=== PATIENT | female | born 1945 | race Caucasian/White ===

== ENCOUNTER 2017-01-28 02:12 | Emergency (ER) | payer MEDICARE, OTHER ==
[~2017-01-28] VITALS: Ht 149.9 cm; Wt 52.0 kg
[~2017-01-28 02:12] MED LIST: ALBU8.5H8 IH; CARV6 PO; COLC0.6T67 PO; HYOS-27 SL; INSLAN SQ; NIFE30TA66 PO; NITR0.4T SL; PANT40TA25 PO; SERT50TA12 PO; SUCR1ORA5 PO
[2017-01-28] MEDS ORDERED: AMLO-511 PO (02:26)
[2017-01-28] MEDS ORDERED: CARV12 PO (02:26)
[2017-01-28] MEDS ORDERED: ATOR40TA28 PO (02:26)
[2017-01-28] MEDS ORDERED: RANO500T3 PO ×2 (02:26→14:29)
[2017-01-28] MEDS ORDERED: ESCI10TA PO (02:26)
[2017-01-28] MEDS ORDERED: HYDR-2924 PO (02:26)
[2017-01-28] MEDS ORDERED: INSNOV SQ (02:26)
[2017-01-28] MEDS ORDERED: ISOS60TA4 PO (02:26)
[2017-01-28] MEDS ORDERED: LEVE500T53 PO ×2 (02:26)
[2017-01-28] MEDS ORDERED: HYDR-309 PO (02:26)
[2017-01-28] MEDS ORDERED: ESOM20CA39 PO (02:26)
[2017-01-28] MEDS ORDERED: SEVEC800 PO (02:26)
[2017-01-28] MEDS ORDERED: QUET25TA PO (02:26)
[2017-01-28] MEDS ORDERED: INSLAN SQ (02:26)
[2017-01-28 02:33] LABS: GLUCOSE,POINT OF CARE 177 MG/DL (70-110)
[2017-01-28] MEDS ORDERED: VALA500T38 PO (02:40)
[2017-01-28 03:11] LABS: BASOPHILS % (AUTO) 0.6 % (0.0-2.0); HEMATOCRIT 33.5 % (36-46); HEMOGLOBIN 11.2 g/dL (12.0-16.0); LYMPHOCYTES # (AUTO) 1.8 K/uL (1.0-4.8); LYMPHOCYTES % (AUTO) 39.2 % (22.0-44.0); MEAN CORPUSCULAR HEMOGLOBIN 30.4 pg (26.0-34.0); MEAN CORPUSCULAR HGB CONC 33.5 G/dL (31.0-37.0); MEAN CORPUSCULAR VOLUME 91 fL (80-100); MONOCYTES # (AUTO) 0.2 K/uL (0.1-1.0); NEUTROPHILS # (AUTO) 2.5 K/uL (1.8-7.7); NEUTROPHILS % (AUTO) 53.2 % (40.0-70.0); PLATELET COUNT (AUTO) 148 K/uL (150-450); WHITE BLOOD COUNT (AUTO) 4.7 K/uL (4.5-11.0)
[2017-01-28 03:19] LABS: ANION GAP 10 mmol/L (8-16); CALCIUM, TOTAL 9.3 mg/dL (8.8-10.5); CARBON DIOXIDE 26 mmol/L (22-29); CHLORIDE 97 mmol/L (98-107); CREATININE 9.12 mg/dL (0.60-1.30); GLOMERULAR FILTR. RATE CALC 4 mL/min (>60); POTASSIUM 4.9 mmol/L (3.5-5.1); SODIUM SERUM 133 mmol/L (136-145); UREA NITROGEN, BLOOD 73 mg/dL (7-18)
[2017-01-28 03:26] LABS: ALANINE AMINOTRANSFERASE 24 U/L (12-78); ALBUMIN 3.1 g/dL (3.4-5.0); ASPARTATE AMINOTRANSFERASE 21 U/L (15-37); BILIRUBIN,TOTAL 0.3 mg/dL (0.1-1.0); CREATINE KINASE, TOTAL 62 U/L (26-192); TOTAL PROTEIN, SERUM 7.7 g/dL (6.4-8.2)
[2017-01-28 05:00] VITALS: BP 122/66
[2017-01-31 10:27] LABS: GLUCOSE COMMENT 1 Doctor Notified; GLUCOSE,POINT OF CARE 114 MG/DL (70-110)
== END 2017-01-28 05:46 | disposition home or self-care (01) ==
LOC: EMS 02:14
DX: R19.7 Diarrhea, unspecified (principal); E11.9 Type 2 diabetes mellitus without complications; I11.9 Hypertensive heart disease without heart failure; Z79.4 Long term (current) use of insulin; Z88.6 Allergy status to analgesic agent; Z91.040 Latex allergy status; Z91.018 Allergy to other foods
CPT/HCPCS: 82962; 93005; 99285

== ENCOUNTER 2017-01-28 13:17 | Inpatient (IN) | payer MEDICARE, OTHER ==
[~2017-01-28] VITALS: Ht 157.5 cm; Wt 50.2 kg
[~2017-01-28 13:17] MED LIST changes: +AMLO-511 PO; +ATOR40TA28 PO; +CARV12 PO; +ESCI10TA PO; +ESOM20CA39 PO; +HYDR-2924 PO; +HYDR-309 PO; +INSNOV SQ; +ISOS60TA4 PO; +LEVE500T53 PO; +QUET25TA PO; +RANO500T3 PO; +SEVEC800 PO; +VALA500T38 PO
[2017-01-28 14:06] LABS: BASOPHILS % (AUTO) 0.9 % (0.0-2.0); EOSINOPHILS % (AUTO) 1.6 % (1.0-6.0); HEMATOCRIT 34.9 % (36-46); HEMOGLOBIN 11.8 g/dL (12.0-16.0); LYMPHOCYTES # (AUTO) 2.6 K/uL (1.0-4.8); LYMPHOCYTES % (AUTO) 51.8 % (22.0-44.0); MEAN CORPUSCULAR HEMOGLOBIN 30.4 pg (26.0-34.0); MEAN CORPUSCULAR HGB CONC 33.7 G/dL (31.0-37.0); MEAN CORPUSCULAR VOLUME 90 fL (80-100); MONOCYTES # (AUTO) 0.3 K/uL (0.1-1.0); MONOCYTES % (AUTO) 6.7 % (2.0-9.0); NEUTROPHILS # (AUTO) 1.9 K/uL (1.8-7.7); PLATELET COUNT (AUTO) 154 K/uL (150-450); RED BLOOD CELL COUNT(AUTO) 3.87 MIL/uL (4.00-5.20); RED CELL DISTRIBUTION WIDTH 14.8 % (11.5-14.5); WHITE BLOOD COUNT (AUTO) 4.9 K/uL (4.5-11.0)
[2017-01-28 14:17] LABS: CALCIUM, TOTAL 9.4 mg/dL (8.8-10.5); CREATININE 9.65 mg/dL (0.60-1.30); POTASSIUM 4.8 mmol/L (3.5-5.1)
[2017-01-28 14:26] LABS: ALBUMIN 3.2 g/dL (3.4-5.0); BILIRUBIN,TOTAL 0.4 mg/dL (0.1-1.0); TROPONIN I 0.02 ng/mL (0.00-0.05)
[2017-01-28] MEDS ORDERED: RANO500T3 PO (14:29)
[2017-01-28] MEDS ORDERED: CARVEDILOL 3.125 MG TABLET PO ONE (16:00)
[2017-01-28] MEDS ORDERED: ISOSORBIDE MONONITRATE 60 MG ER TABLET PO ONE (16:00)
[2017-01-28] MEDS ORDERED: AmLODIPine BESYLATE 5 MG TABLET PO ONE (16:00)
[2017-01-28] MEDS ORDERED: LevETIRAcetam 500 MG TABLET PO ONE ×2 (16:00→16:30)
[2017-01-28] MEDS ORDERED: HydrALAZINE HCL 25 MG TABLET PO ONE (16:15)
[2017-01-28 21:15] VITALS: BP 148/69
[2017-01-28] MEDS ORDERED: ONDANSETRON HCL 4 MG/2 ML VIAL IVP PRN (21:15)
[2017-01-28] MEDS ORDERED: MAGNESIUM HYDROXIDE SUSPENSION 30 ML UDCUP PO PRN (21:15)
[2017-01-28] MEDS ORDERED: BISACODYL 10 MG RECTAL RECTAL SUPPOSITORY PR PRN (21:15)
[2017-01-28] MEDS ORDERED: MORPHINE SULFATE 2 MG/ML SYRINGE IVP PRN (21:15)
[2017-01-28] MEDS ORDERED: LORazepam 2 MG/ML VIAL IVP PRN (21:15)
[2017-01-28] MEDS ORDERED: ZOLPIDEM TARTRATE 5 MG TABLET PO PRN (21:15)
[2017-01-28] MEDS: ISOSORBIDE MONONITRATE 60 MG ER TABLET PO SCH (21:47)
[2017-01-28 22:12] LABS: GLUCOSE,POINT OF CARE 181 MG/DL (70-110)
[2017-01-28] MEDS ORDERED: DEXTROSE 50%-WATER 25 GM/50 ML SYRINGE IVP PRN (22:15)
[2017-01-28 23:01] VITALS: BP 151/63
[2017-01-28] MEDS: HEPARIN SODIUM,PORCINE 5,000 UNITS/ML VIAL SQ SCH (23:13)
[2017-01-28] MEDS: QUEtiapine FUMARATE 25 MG TABLET PO SCH (23:57)
[2017-01-29 04:30] VITALS: BP 138/69
[2017-01-29] MEDS: INSULIN ASPART 100 UNITS/ML SQ PRN ×3 (07:01→20:55)
[2017-01-29 07:19] VITALS: BP 171/69
[2017-01-29] MEDS: HEPARIN SODIUM,PORCINE 5,000 UNITS/ML VIAL SQ SCH ×2 (08:00→20:06)
[2017-01-29] MEDS ORDERED: SEVELAMER CARBONATE 800 MG TABLET PO SCH (08:00)
[2017-01-29] MEDS: SEVELAMER CARBONATE 800 MG TABLET PO SCH ×3 (08:56→18:20)
[2017-01-29] MEDS: PANTOPRAZOLE SODIUM 40 MG DR TABLET PO SCH (08:56)
[2017-01-29] MEDS: CARVEDILOL 12.5 MG TABLET PO SCH ×2 (08:56→19:58)
[2017-01-29] MEDS: LevETIRAcetam 500 MG TABLET PO SCH ×2 (08:56→19:58)
[2017-01-29] MEDS: ACYCLOVIR 200 MG CAPSULE PO SCH ×4 (08:57→19:59)
[2017-01-29] MEDS: DOCUSATE SODIUM 100 MG CAPSULE PO SCH ×2 (08:59→19:59)
[2017-01-29] MEDS ORDERED: AmLODIPine BESYLATE 5 MG TABLET PO SCH (09:00)
[2017-01-29] MEDS ORDERED: ISOSORBIDE MONONITRATE 60 MG ER TABLET PO SCH (09:00)
[2017-01-29] MEDS ORDERED: RANOLAZINE 500 MG SR TABLET PO SCH (09:00)
[2017-01-29] MEDS: HydrALAZINE HCL 50 MG TABLET PO SCH (09:00)
[2017-01-29 09:13] LABS: GLUCOSE,POINT OF CARE 162 MG/DL (70-110)
[2017-01-29] MEDS ORDERED: HYDROCODONE/ACETAMINOPHEN 5-325 MG TABLET PO PRN (10:15)
[2017-01-29 11:09] VITALS: BP 124/104
[2017-01-29 15:25] VITALS: BP 141/65
[2017-01-29] MEDS ORDERED: SODIUM CHLORIDE 0.9% 1,000 ML IV ONE (16:48)
[2017-01-29 19:42] VITALS: BP 163/64
[2017-01-29] MEDS: QUEtiapine FUMARATE 25 MG TABLET PO SCH (19:58)
[2017-01-29] MEDS: ISOSORBIDE MONONITRATE 60 MG ER TABLET PO SCH (19:58)
[2017-01-29] MEDS ORDERED: ATORVASTATIN CALCIUM 40 MG TABLET PO SCH (21:00)
[2017-01-29 23:36] VITALS: BP 119/62
[2017-01-30 05:10] VITALS: BP 116/54
[2017-01-30 07:17] VITALS: BP 118/60
[2017-01-30 07:18] LABS: GLUCOSE,POINT OF CARE 128 MG/DL (70-110)
[2017-01-30 07:18] LABS: GLUCOSE,POINT OF CARE 189 MG/DL (70-110)
[2017-01-30 07:18] LABS: GLUCOSE,POINT OF CARE 106 MG/DL (70-110)
[2017-01-30 07:18] LABS: GLUCOSE,POINT OF CARE 179 MG/DL (70-110)
[2017-01-30] MEDS ORDERED: ESCITALOPRAM OXALATE 10 MG TABLET PO SCH (09:00)
[2017-01-30] MEDS: DOCUSATE SODIUM 100 MG CAPSULE PO SCH (09:00)
[2017-01-30] MEDS ORDERED: AmLODIPine BESYLATE 5 MG TABLET PO SCH (09:00)
[2017-01-30] MEDS: HEPARIN SODIUM,PORCINE 5,000 UNITS/ML VIAL SQ SCH (09:00)
[2017-01-30] MEDS: LevETIRAcetam 500 MG TABLET PO SCH (09:10)
[2017-01-30] MEDS: PANTOPRAZOLE SODIUM 40 MG DR TABLET PO SCH (09:10)
[2017-01-30] MEDS: CARVEDILOL 12.5 MG TABLET PO SCH (09:10)
[2017-01-30] MEDS: HydrALAZINE HCL 50 MG TABLET PO SCH (09:10)
[2017-01-30] MEDS: SEVELAMER CARBONATE 800 MG TABLET PO SCH ×2 (09:10→12:15)
[2017-01-30] MEDS: ACYCLOVIR 200 MG CAPSULE PO SCH (09:11)
[2017-01-30 10:49] VITALS: BP 143/66
[2017-01-30] MEDS: INSULIN ASPART 100 UNITS/ML SQ PRN (12:18)
[2017-01-30] MEDS ORDERED: ACYC200O5 PO (14:19)
[2017-01-30 14:54] VITALS: BP 135/70
[2017-01-30 16:02] LABS: GLUCOSE,POINT OF CARE 279 MG/DL (70-110)
== END 2017-01-30 16:10 | disposition home or self-care (01) | DRG 100 ==
LOC: EMS 13:19 → 6N 17:23 → 5N 22:50
PROVIDERS: ADMIT Internal Medicine; ATTEND Internal Medicine
PROC: 5A1D70Z Performance of Urinary Filtration, Intermittent, Less than 6 Hours Per Day (ICD-10-PCS; principal; 2017-01-28)
PROC: 5A1D70Z Performance of Urinary Filtration, Intermittent, Less than 6 Hours Per Day (ICD-10-PCS; 2017-01-29)
DX: G40.89 Other seizures (principal); I50.33 Acute on chronic diastolic (congestive) heart failure; I13.2 Hypertensive heart and chronic kidney disease with heart failure and with stage 5 chronic kidney disease, or end stage renal disease; E44.0 Moderate protein-calorie malnutrition; E11.22 Type 2 diabetes mellitus with diabetic chronic kidney disease; B02.9 Zoster without complications; E87.1 Hypo-osmolality and hyponatremia; N18.6 End stage renal disease; D63.8 Anemia in other chronic diseases classified elsewhere; E78.5 Hyperlipidemia, unspecified; I25.10 Atherosclerotic heart disease of native coronary artery without angina pectoris; K21.9 Gastro-esophageal reflux disease without esophagitis; Z79.4 Long term (current) use of insulin; Z86.73 Personal history of transient ischemic attack (TIA), and cerebral infarction without residual deficits; Z87.11 Personal history of peptic ulcer disease; Z87.891 Personal history of nicotine dependence; Z95.1 Presence of aortocoronary bypass graft; Z95.5 Presence of coronary angioplasty implant and graft; Z99.2 Dependence on renal dialysis; Z88.1 Allergy status to other antibiotic agents; Z91.040 Latex allergy status; Z88.8 Allergy status to other drugs, medicaments and biological substances; Z91.018 Allergy to other foods
CPT/HCPCS: 70450; 82962; 87081; 87340; 90935; 93005; 99291; G0482; J7030